=== PATIENT | female | born 1965 | race Caucasian/White ===

== ENCOUNTER 2022-03-10 13:10 | Outpatient (CLI) | payer OTHER | END 2022-03-10 13:30 | disposition home or self-care (01) | LOC: RAD 13:10 | DX: N94.5 Secondary dysmenorrhea (principal); N92.6 Irregular menstruation, unspecified; D27.1 Benign neoplasm of left ovary; N85.2 Hypertrophy of uterus; D25.1 Intramural leiomyoma of uterus; R93.5 Abnormal findings on diagnostic imaging of other abdominal regions, including retroperitoneum ==

== ENCOUNTER 2022-03-26 10:15 | Day surgery (SDC) | payer OTHER ==
[~2022-03-26] VITALS: Ht 157.5 cm; Wt 63.5 kg
[~2022-03-26 10:15] MED LIST: CRESTOR10 MG PO; LYRICA100 MG PO; SYNTHROID88 MCG PO
== END 2022-03-26 18:10 | disposition home or self-care (01) ==
LOC: CIR.AMB 10:15
PROVIDERS: ATTEND Obstetrics & Gynecology
DX: N84.1 Polyp of cervix uteri (principal); N72 Inflammatory disease of cervix uteri; R93.89 Abnormal findings on diagnostic imaging of other specified body structures; D25.9 Leiomyoma of uterus, unspecified; E03.8 Other specified hypothyroidism; R93.5 Abnormal findings on diagnostic imaging of other abdominal regions, including retroperitoneum; Z20.822 Contact with and (suspected) exposure to COVID-19

== ENCOUNTER 2023-11-25 10:45 | Day surgery (SDC) | payer OTHER ==
[~2023-11-25] VITALS: Ht 157.5 cm; Wt 64.4 kg
[2023-11-25] MEDS ORDERED: CEFAZOLIN SODIUM 1,000 MG VIAL IV ONE (15:00)
[2023-11-25] MEDS ORDERED: POVIDONE-IODINE 118 ML BOTT TOP ONE (15:00)
[2023-11-25] MEDS ORDERED: ZITHROMAX500 MG PO (16:36)
== END 2023-11-25 20:25 | disposition home or self-care (01) ==
LOC: CIR.AMB 10:45
PROVIDERS: ATTEND Obstetrics & Gynecology
DX: N84.0 Polyp of corpus uteri (principal); R93.5 Abnormal findings on diagnostic imaging of other abdominal regions, including retroperitoneum; E03.9 Hypothyroidism, unspecified